=== PATIENT | female | born 1990 | race Caucasian/White ===

== ENCOUNTER 2018-04-02 14:27 | Day surgery (SDC) | payer OTHER ==
[2018-04-02 14:51] VITALS: BP 149/74; TEMP 98.4; BMI 33.9
[2018-04-02 15:44] LABS: #Eosinphils 0.1 thou/uL (0.0-0.7); #Monocytes 0.9 thou/uL (0.11-0.59); #Neutrophils 8.8 thou/uL (1.40-6.50); %Basophils 0.2 % (0.0-1.0); %Eosinophils 0.8 % (0.0-10.0); %Lymphocytes 17.2 % (21.0-51.0); %Monocytes 7.3 % (0.0-10.0); %Neutrophils 74.4 % (42.0-75.0); Hemoglobin 10.9 g/dL (12.0-16.0); Mean Corpuscular HGB CONC 32.9 g/dL (32.0-36.0); Mean Corpuscular Hemoglobin 27.7 pg (27.0-31.0); Mean Corpuscular Volume 84.4 fL (78.0-98.0); Mean Platelet Volume 8.8 fL (7.4-10.4); Platelet Count 234 thou/uL (130-400); RBC Distribution Width 12.7 % (11.5-14.5); Red Blood Cell (RBC) Count 3.92 mill/uL (4.20-5.40); White Blood Cell (WBC) Count 11.8 thou/uL (4.8-10.8)
[2018-04-02 16:05] LABS: ALT (SGPT) 20 U/L (8-55); AST (SGOT) 25 U/L (5-34); Albumin 3.3 g/dL (3.5-5.0); Alkaline Phosphatase 132 U/L (40-150); Anion Gap 13 mmol/L (10-20); BUN (Urea Nitrogen) 12 mg/dL (7.0-18.7); Bilirubin, Total 0.3 mg/dL (0.2-1.2); Calc. Creatinine Clearance 185 mL/min (70-130); Calcium 9.3 mg/dL (7.8-10.44); Carbon Dioxide 19 mmol/L (22-29); Chloride 108 mmol/L (98-107); Estimated GFR-MDRD Greater than 90; Globulin 2.9 g/dL (2.4-3.5); Glucose 72 mg/dL (70-105); Potassium 4.1 mmol/L (3.5-5.1); Protein, Total 6.2 g/dL (6.0-8.3); Sodium 136 mmol/L (136-145)
[2018-04-02 16:37] LABS: Creatinine, Urine Less than 20.00 mg/dL (47-110); Protein, Urine Random Quant Less than 10 mg/dL (1-14)
--- NOTE | 2018-04-02 16:56 | PDOC.LDHP ---
Labor and Delivery H&P Chief complaint: other (BP workup) HPI: 27 y/o G1 at 37w6d, patient of Dr. Jackson, sent from clinic for elevated BP. Denies VB, LOF, ctx, PIH sx, or other concerns. +FM. ROS neg for HEENT, cv, pulm, gi, gu, neuro, psych, skin, musculoskeletal or constitutional symptoms other than mentioned above. OB History Details: First Current complications: none Past Medical History: Depression Current medications: pre- vitamins, other (zoloft) Previous surgical history: none Allergies/Adverse Reactions: Allergies Allergy/AdvReac Type Severity Reaction Status Date / Time No Known Allergies Allergy Unverified 04/02/18 14:51 Social history: none - Physical Exam Vital signs reviewed and normal: yes General: NAD, resting Lungs: nonlabored breathing Abdomen: gravid Extremeties: no edema FHT: category 1 (120s, mod variability, + accels, single variable decel) [place] contractions every: none - OB Labs Additional Labs: Laboratory Tests 04/02/18 04/02/18 04/02/18 15:32 15:32 15:51 WBC 11.8 H RBC 3.92 L Hgb 10.9 L Hct 33.1 L MCV 84.4 MCH 27.7 MCHC 32.9 RDW 12.7 Plt Count 234 MPV 8.8 Neutrophils % 74.4 Lymphocytes % 17.2 L Monocytes % 7.3 Eosinophils % 0.8 Basophils % 0.2 Neutrophils # 8.8 H Lymphocytes # 2.0 Monocytes # 0.9 H Eosinophils # 0.1 Basophils # 0.0 Sodium 136 Potassium 4.1 Chloride 108 H Carbon Dioxide 19 L Anion Gap 13 BUN 12 Creatinine 0.70 Estimated GFR (MDRD) Greater than 90 Glucose 72 Calcium 9.3 Total Bilirubin 0.3 AST 25 ALT 20 Alkaline Phosphatase 132 Serum Total Protein 6.2 Albumin 3.3 L Globulin 2.9 Albumin/Globulin Ratio 1.1 L U Random Total Protein Less than 10 Urine Creatinine Less than 20.00 L - Assessment 27 y/o G1 at 37w6d with no e/o preeclampsia. BPs, labs wnl. Bedside ultrasound performed for variable deceleration with normal MARY of 18cm noted. status reassuring with reactive NST. - Plan -: D/c home with precautions. Plan discussed with Dr. Jackson who would like patient to check BP on Saturday. Patient understands.
== END 2018-04-02 17:30 | disposition home or self-care (01) ==
LOC: L&D/OP 14:27
PROVIDERS: ATTEND Obstetrics & Gynecology
DX: O99.89 Other specified diseases and conditions complicating pregnancy, childbirth and the puerperium (principal); R03.0 Elevated blood-pressure reading, without diagnosis of hypertension; Z3A.37 37 weeks gestation of pregnancy
CPT/HCPCS: 36415; 80053; 82570; 84156; 85025; 99283

== ENCOUNTER 2018-04-04 13:53 | Inpatient (IN) | payer OTHER ==
[2018-04-04 14:39] VITALS: BMI 33.9
--- NOTE | 2018-04-04 16:19 | ULT ---
BIOPHYSICAL PROFILE 04/04/18 HISTORY: heart rate late decelerations. COMPARISON: None available. FINDINGS: There is a single intrauterine gestation in cephalic presentation. Cardiac doppler demonstrates heart tones with a heart rate of 158 beats per minute. The placenta is located posteriorly wit hout evidence of placenta previa. Amniotic fluid index is calculated at 17.1 cm. A score of 2 was obtained each for tone, breathing, movements and amniotic fluid vo lume. This exam is not performed for evaluation of anatomical structures and measurements were also not performed. IMPRESSION: 1. Single intrauterine gestation in cephalic presentation with heart tones documented. 2. Amniotic fluid index is 17.1 cm. 3. Total biophysical profile score of 8 out of 8. POS: [facility]
[2018-04-04] MEDS ORDERED: Butorphanol Tartrate 1 MG/ML VIAL SLOW IVP PRN (16:56)
[2018-04-04] MEDS ORDERED: HYDROcodone/Acetaminophen 5/325 mg Tablet PO PRN ×2 (16:56)
[2018-04-04] MEDS ORDERED: NS / Oxytocin 40 units/1000ml 1,000 ML IV PRN (16:56)
[2018-04-04] MEDS ORDERED: Promethazine HCl 25 MG/ML VIAL IM PRN (16:56)
[2018-04-04] MEDS ORDERED: Lidocaine 1% (PF) 30 ML VIAL SC PRN (16:56)
[2018-04-04] MEDS ORDERED: Ibuprofen 800 MG TAB PO PRN (16:56)
--- NOTE | 2018-04-04 17:18 | HP ---
DATE OF ADMISSION: 04/04/2018 In brief, this patient has a full handwritten H&P in the physical chart, this dictation is secondary. TIME OF EVALUATION: 16:40 until 16:54. LOCATION: Labor and Delivery in antepartum, bed 1. REASON FOR EVALUATION: The patient was sent here for blood pressure evaluation. HISTORY OF PRESENT ILLNESS: This is a 27-year-old white female 1, para 0 with an EDC of 04/17/2018, putting her at 38 weeks and 1 day. She was sent from the office from Dr. Jackson for blood pressure evaluation. Her first blood pressure on arrival was 142/77 and she just had another blood pressure about 150/90. She denies headache or visual changes or right upper quadrant pain. She denies leakage of fluid. She has good movement. PAST MEDICAL HISTORY: Negative. SOCIAL HISTORY: Negative for smoking. PAST SURGICAL HISTORY: Tonsils and adenoids. OB HISTORY: She is a primigravida. REVIEW OF SYSTEMS: Complete review of systems was checked and is otherwise negative unless specified in the HPI. PHYSICAL EXAMINATION: GENERAL: The patient is in no acute distress. VITAL SIGNS: As previously dictated. Pulse is 100-103. She is afebrile. heart tones are in the 140s to 150s. ABDOMEN: Soft and nontender. Estimated weight by my Clark's exam is 6 pounds and a half. Cervical exam by me is 1/20/-2/cephalic/intact/posterior position and soft. She has a gynecoid pelvis. Monitor shows a nonstress test category 1 with moderate variability. Few irregular contractions are noted. Biophysical profile done here is 8/8. ASSESSMENT: This is a G1, P0 at 38 weeks and 1 day (early term) with mild borderline BPs. PLAN: I discussed with the patient and her in detail the options of continued expectant management versus a trial of induction. I also discussed with her the ACOG hypertensive guidelines. As she has been here more than once for blood pressure evaluation, I have diagnosed mild gestational hypertension and due to her EGA of 38 weeks and a day , recommend induction of labor. Risks to include failure of induction, need for and need for Pitocin have also been discussed. The patient agrees for Cytotec for cervical ripening. As our current census in Labor and Delivery is somewhat full and this is a nonemergent induction, the patient has agreed and I have recommended a p.m. induction to start at roughly 2200. MTDD
[2018-04-04 21:46] LABS: Hemoglobin 10.5 g/dL (12.0-16.0); Mean Corpuscular HGB CONC 33.6 g/dL (32.0-36.0); Mean Corpuscular Hemoglobin 28.3 pg (27.0-31.0); Mean Corpuscular Volume 84.3 fL (78.0-98.0); Mean Platelet Volume 8.9 fL (7.4-10.4); Platelet Count 224 thou/uL (130-400); RBC Distribution Width 12.9 % (11.5-14.5); White Blood Cell (WBC) Count 12.5 thou/uL (4.8-10.8)
[2018-04-04] MEDS: Misoprostol 100 MCG TAB VAG SCH (21:53)
[2018-04-04 22:06] LABS: ALT (SGPT) 21 U/L (8-55); AST (SGOT) 23 U/L (5-34); Albumin 3.1 g/dL (3.5-5.0); Alkaline Phosphatase 120 U/L (40-150); Anion Gap 11 mmol/L (10-20); BUN (Urea Nitrogen) 9 mg/dL (7.0-18.7); Bilirubin, Total 0.2 mg/dL (0.2-1.2); Calc. Creatinine Clearance 177 mL/min (70-130); Carbon Dioxide 19 mmol/L (22-29); Chloride 110 mmol/L (98-107); Estimated GFR-MDRD Greater than 90; Globulin 2.8 g/dL (2.4-3.5); Glucose 136 mg/dL (70-105); Potassium 3.7 mmol/L (3.5-5.1); Protein, Total 5.9 g/dL (6.0-8.3); Sodium 136 mmol/L (136-145)
[2018-04-04 22:24] LABS: Syphilis Antibody Nonreactive (Nonreactive); Syphilis Antibody Index 0.04 S/CO (<1.00 Non-Reactive)
[2018-04-04 23:28] LABS: HBSAg Index 0.14 S/CO (0-0.99); HIV (1/2) Antibody/Antigen Non-Reactive (NonReactive); HIV 1/2 INDEX 0.13 S/CO (<1.00); Hep B Surf Ag Non-Reactive S/CO (NonReactive)
[2018-04-05] MEDS ORDERED: Gaviscon Tablet PO PRN (02:04)
[2018-04-05] MEDS ORDERED: Mag-Al 1200 mg/1200 mg/30 ML UDCUP PO SCH (02:15)
--- NOTE | 2018-04-05 03:44 | PDOC.EVN ---
Event Note - Event Note Event Note: Strip reviewd: occassioanl variables that seem to be maternal position related...I suspect body cord. Cervix still only 1 cm...only has had one cytotec tab due to CTX. Will follow
--- NOTE | 2018-04-05 03:49 | PDOC.EVN ---
Event Note - Event Note Event Note: At bedside now for exam by me.
[2018-04-05] MEDS ORDERED: Terbutaline Sulfate 1 MG/ML VIAL ONE (03:59)
--- NOTE | 2018-04-05 03:59 | PDOC.EVN ---
Event Note - Event Note Event Note: Just ordered one time TERB SQ to help baby recover. We can retry pitocin later recovery as another option
[2018-04-05] MEDS: Terbutaline Sulfate 1 MG/ML VIAL SC SCH ×2 (04:08→18:41)
[2018-04-05] MEDS: Lactated Ringer's 1,000 ML IV SCH ×3 (04:08→13:57)
[2018-04-05] MEDS: Misoprostol 100 MCG TAB VAG SCH ×2 (07:03→10:01)
[2018-04-05] MEDS ORDERED: Calcium Gluc 4.6 MEQ/10 ML (100 MG/ML) SLOW IVP PRN (07:08)
--- NOTE | 2018-04-05 07:10 | PDOC.EVN ---
Event Note - Event Note Event Note: L&D note: Mag Sulfate note Patient now with new complaint of headache. No visual changes. BP systolic of 150...as we are inducing for Preeclampsia, the new finding of MICHEL will require mag sulfate per protocol. Tylenol allowed after the Mag. patient states it may be from "lacl of sleep". While that may be the case, her BP elevateion with MICHEL is criteria for Mag.
[2018-04-05] MEDS ORDERED: Magnesium Sulfate 20 GM/WATER 500 ML BAG IVPB SCH (07:15)
--- NOTE | 2018-04-05 07:29 | PDOC.EVN ---
Event Note - Event Note Event Note: Discussed with patient Mag sulfate for MICHEL and BP elevation, we will start pitocin. I told her I suspected she will get a CS if no progress.
[2018-04-05] MEDS ORDERED: Acetaminophen 500 MG TAB PO SCH (07:30)
[2018-04-05] MEDS: Magnesium Sulfate 20 gm/500 ml 20 GM/500 ML BAG IVPB SCH ×2 (07:34→15:31)
[2018-04-05] MEDS ORDERED: Ondansetron HCl/PF 4 MG/2 ML Vial ONE (10:29)
[2018-04-05] MEDS: Ondansetron HCl/PF 4 MG/2 ML Vial IVP PRN ×2 (10:30→18:40)
[2018-04-05] MEDS ORDERED: Morphine 10 MG/ML VIAL SLOW IVP SCH (10:45)
[2018-04-05] MEDS: NS w/ Oxytocin 10 units 500 ML IV SCH (13:01)
[2018-04-06] MEDS ORDERED: DISCONTINUE ALL PREVIOUS NARCOTICS FS SCH (00:30)
[2018-04-06] MEDS ORDERED: Bupivacaine 0.5% 20 ML, fentaNYL Citrate/PF 400 MCG in Sodium Chloride 0.9% 72 ML EPIDURAL SCH (00:30)
[2018-04-06] MEDS ORDERED: Lidocaine HCl/Epinephrine 5 ML AMPUL IJ ONE (00:55)
[2018-04-06] MEDS ORDERED: Lidocaine 2% PF Inj 2 ML VIAL ONE (00:56)
[2018-04-06] MEDS ORDERED: ePHEDrine/0.9% NaCl/PF SYRINGE 50 mg/10 ml SLOW IVP PRN (01:20)
[2018-04-06] MEDS ORDERED: diphenhydrAMINE 50 MG/ML VIAL IVP PRN (01:20)
[2018-04-06] MEDS ORDERED: Naloxone HCl 0.4 mg/ml Vial IVP PRN ×2 (01:20)
[2018-04-06] MEDS ORDERED: Lactated Ringer's 500 ML IV PRN (01:20)
[2018-04-06] MEDS ORDERED: Ondansetron HCl/PF 4 MG/2 ML Vial IVP PRN (01:20)
[2018-04-06] MEDS ORDERED: Promethazine HCl 25 MG/ML VIAL IM PRN (01:20)
[2018-04-06] MEDS ORDERED: Hydrocerin (Eucerin) Cream 120 gm Jar TOP PRN (01:20)
[2018-04-06] MEDS ORDERED: Acetaminophen 325 MG TAB PO PRN (01:20)
[2018-04-06] MEDS ORDERED: fentaNYL Citrate/PF 400 MCG, Bupivacaine 0.5% 20 ML in Sodium Chloride 0.9% 72 ML EPIDURAL SCH (01:30)
[2018-04-06] MEDS ORDERED: Communication Order-Pharmacy FS SCH (01:30)
[2018-04-06] MEDS: Lactated Ringer's 1,000 ML IV SCH ×3 (02:00→23:49)
[2018-04-06] MEDS ORDERED: CEFAZOLIN/Water 2 GM/20 ML SYRINGE ONE (02:43)
[2018-04-06 05:24] LABS: Analyzer IN Cardio OR
[2018-04-06 05:29] LABS: Actual Bicarbonate (HCO3v) 15 mEq/L (22-28); Base Excess -14.5 mEq/L (-2.0 to +3.0); pH (Cord, venous) 7.11 (7.32-7.43)
--- NOTE | 2018-04-06 12:20 | OP ---
DATE OF PROCEDURE: 04/06/2018 INDICATIONS FOR PROCEDURE: Patient is a 27-year-old female G1, now P1 who delivered by uncomplicated term spontaneous vaginal delivery at 38 weeks and 3 days on 04/06/2018. Delivery time was 0506. In lan was a male with Apgars of 7 and 8 and delivery weight of grams. Placenta delivered spontaneously followed by Pitocin infusion. There was a small second-degree vaginal laceration. Th is was repaired in the usual sterile fashion for hemostasis. ESTIMATED BLOOD LOSS: Her quantitative blood loss was 131 mL. DELIVERING PHYSICIAN: Dr. To Overton. Mother and baby are both stable in the immediate .
[2018-04-06] MEDS: NS w/ Oxytocin 10 units 500 ML IV SCH (14:37)
[2018-04-06] MEDS ORDERED: Acetaminophen/Codeine 30-300mg Tablet PO PRN (14:57)
[2018-04-06] MEDS: Acetaminophen/Codeine 30-300mg Tablet PO PRN (18:19)
[2018-04-06] MEDS ORDERED: Benzocaine/Menthol 20-0.5% 60 ML CAN TOP PRN (20:33)
[2018-04-06] MEDS ORDERED: Bupivacaine 0.25% HCL 30 ML VIAL ONE (21:00)
[2018-04-06] MEDS: Docusate Calcium (SURFAK) 240 MG CAP PO SCH (21:45)
[2018-04-07] MEDS: Acetaminophen/Codeine 30-300mg Tablet PO PRN ×2 (00:21→08:47)
[2018-04-07] MEDS: NS w/ Oxytocin 10 units 500 ML IV SCH (08:45)
[2018-04-07] MEDS: Lactated Ringer's 1,000 ML IV SCH ×2 (08:45→16:25)
[2018-04-07] MEDS: Prenatal Vitamin 1 TAB PO SCH (08:47)
[2018-04-07] MEDS: Docusate Calcium (SURFAK) 240 MG CAP PO SCH ×2 (08:47→20:33)
--- NOTE | 2018-04-07 10:09 | PDOC.PP ---
Post Progress Note Post Day #: 1 Subjective: doing well, no PIH sx, pumping and nursing, min lochia and pain PO intake tolerated: yes Flatus: yes Ambulation: yes Vital Signs (12 hours) Temp Pulse Resp BP Pulse Ox 04/07/18 08:54 97.8 F 90 18 131/74 98 04/07/18 05:15 98.6 F 86 18 124/59 L 04/07/18 00:15 98.0 F 75 18 119/67 Weight Weight 210 lb - Physical Examination Respiratory: non-labored breathing Abdominal: no distention Fundus firm & at: below umb Skin: no rash Neurological: no gross focal deficits Psychiatric: A&Ox3, normal affect Result Diagrams: 04/04/18 21:40 04/04/18 21:40 Additional Labs: Post Labs Blood Type AB POSITIVE 04/04/18 21:40 Hep Bs Antigen Non-Reactive S/CO (NonReactive) 04/04/18 21:40 (1) Vaginal delivery Code(s): O80 - ENCOUNTER FOR FULL-TERM UNCOMPLICATED DELIVERY Status: Acute (2) PIH ( induced hypertension) Code(s): O13.9 - GESTATIONAL HTN W/O SIGNIFICANT PROTEINURIA, UNSP TRIMESTER Status: Acute - Assessment/Plan PPD1 sp IOL and @ 38+ weeks for PIH without severe features. Doing well, possible DC home tomorrow.
[2018-04-08] MEDS: Lactated Ringer's 1,000 ML IV SCH ×2 (02:21→09:25)
[2018-04-08 08:04] VITALS: BP 136/75; TEMP 98.4
[2018-04-08] MEDS: NS w/ Oxytocin 10 units 500 ML IV SCH (08:46)
[2018-04-08] MEDS: Docusate Calcium (SURFAK) 240 MG CAP PO SCH (09:25)
[2018-04-08] MEDS: Prenatal Vitamin 1 TAB PO SCH (09:25)
--- NOTE | 2018-04-08 09:47 | PDOC.PP ---
Post Progress Note Post Day #: 2 Subjective: doing well, nursing, no PIH sx PO intake tolerated: yes Flatus: yes Ambulation: yes Vital Signs (12 hours) Temp Pulse Resp BP Pulse Ox 04/08/18 08:03 98.4 F 67 18 136/75 97 04/08/18 07:30 98.3 F 71 15 136/73 04/08/18 05:00 98.8 F 83 16 135/69 04/08/18 01:13 98.6 F 74 18 121/68 Weight Weight 210 lb - Physical Examination Respiratory: non-labored breathing Abdominal: no distention Fundus firm & at: below umb Extremities: negative homans (B) Skin: no rash Neurological: no gross focal deficits Psychiatric: A&Ox3, normal affect Result Diagrams: 04/04/18 21:40 04/04/18 21:40 Additional Labs: Post Labs Blood Type AB POSITIVE 04/04/18 21:40 Hep Bs Antigen Non-Reactive S/CO (NonReactive) 04/04/18 21:40 (1) Vaginal delivery Code(s): O80 - ENCOUNTER FOR FULL-TERM UNCOMPLICATED DELIVERY Status: Acute (2) PIH ( induced hypertension) Code(s): O13.9 - GESTATIONAL HTN W/O SIGNIFICANT PROTEINURIA, UNSP TRIMESTER Status: Acute - Assessment/Plan PPD2, doing well, planning to DC home today.
== END 2018-04-08 12:30 | disposition home or self-care (01) | DRG 775 ==
LOC: L&D/OP 13:53 → L&D 17:57 → 3SW 04-06 12:25
PROVIDERS: ADMIT Emergency Medicine; ATTEND Emergency Medicine
PROC: 10E0XZZ Delivery of Products of Conception, External Approach (ICD-10-PCS; principal; 2018-04-06)
PROC: 0KQM0ZZ Repair Perineum Muscle, Open Approach (ICD-10-PCS; 2018-04-06)
DX: O70.1 Second degree perineal laceration during delivery (principal); Z37.0 Single live birth; Z3A.38 38 weeks gestation of pregnancy; O13.4 Gestational [pregnancy-induced] hypertension without significant proteinuria, complicating childbirth
CPT/HCPCS: 36415; 51702; 76819; 80053; 81003; 82570; 82805; 84156; 85025; 85027; 86780; 86850; 86900; 86901; 87340; 87389; 99283; 99285; C1726; J0595; J2001; J2270; J2405; J3010; J3105; J3475; J3490; J7050; S0020